=== PATIENT | female | born 1970 | race African-American/Black ===

== ENCOUNTER 2019-04-23 18:17 | Emergency (ER) | payer BC ==
[~2019-04-23] VITALS: Ht 162.6 cm; Wt 59.0 kg
[~2019-04-23 18:17] MED LIST: MULTIVITAMINS; ZOFRAN ODT4 MG PO
[2019-04-23 19:29] VITALS: BP 175/99
== END 2019-04-23 19:31 | disposition home or self-care (01) ==
LOC: ER 18:17
DX: S60.211A Contusion of right wrist, initial encounter (principal); Z91.048 Other nonmedicinal substance allergy status; V89.2XXA Person injured in unspecified motor-vehicle accident, traffic, initial encounter; Y92.89 Other specified places as the place of occurrence of the external cause; Y93.89 Activity, other specified; Y99.8 Other external cause status